=== PATIENT | female | born 1955 | race Caucasian/White ===

== ENCOUNTER 2017-07-16 10:37 | Outpatient (CLI) | payer BC ==
[2017-07-16 18:00] LABS: BASOPHILS % (AUTO) 0.5 %; EOSINOPHILS % (AUTO) 0.7 %; HGB - HEMOGLOBIN 14.1 g/dL (12.0-16.0); LYMPHOCYTES # (AUTO) 1.7 10^3/uL (1.5-3.5); MEAN CORPUSCULAR HEMOGLOBIN 31.3 pg (27.0-31.0); MEAN CORPUSCULAR HGB CONC 32.8 g/dL (32.0-36.0); MEAN CORPUSCULAR VOLUME 95.5 fL (81.0-99.0); MEAN PLATELET VOLUME 7.8 fL (7.9-10.8); MONOCYTES # (AUTO) 0.4 10^3/uL (0.0-1.0); MONOCYTES % (AUTO) 6.1 %; NEUTROPHILS # (AUTO) 4.7 10^3/uL (1.5-6.6); NEUTROPHILS % (AUTO) 67.7 %; PLT - PLATELET COUNT 322 10^3/uL (130-450); RED BLOOD COUNT 4.49 10^6/uL (4.20-5.40); RED CELL DISTRIBUTION WIDTH 13.6 % (12.0-15.0); WHITE BLOOD COUNT 6.9 x10^3/uL (4.8-10.8)
[2017-07-16 18:14] LABS: ALBUMIN 4.9 g/dL (3.2-5.5); ALKALINE PHOSPHATASE 43 IU/L (42-121); ALT ALANINE AMINOTRANSFERASE 23 IU/L (10-60); AST ASPARTATE AMINOTRANSFERASE 22 IU/L (10-42); BILIRUBIN,TOTAL 0.5 mg/dL (0.2-1.0); BUN - BLOOD UREA NITROGEN 11 mg/dL (6-20); CARBON DIOXIDE - CO2 28 mmol/L (21-32); CHLORIDE 103 mmol/L (101-111); CHOL/HDL RATIO 2.2 (<4.4); CHOLESTEROL 172 mg/dL; CREATININE 0.6 mg/dL (0.4-1.0); GFR - MDRD 101 (>89); GLUCOSE 82 mg/dL (70-100); HDL CHOLESTEROL 80 mg/dL; LDL CHOLESTEROL,CALCULATED 79 mg/dL; SODIUM 137 mmol/L (135-145); TOTAL PROTEIN 7.4 g/dL (6.7-8.2); VLDL CHOLESTEROL 13 mg/dL
[2017-07-16 18:16] LABS: T4 (THYROXINE) 5.69 ug/dL (6.09-12.23)
[2017-07-16 18:19] LABS: FREE T3 3.46 pg/mL (2.5-3.9)
[2017-07-16 18:22] LABS: THYROID STIMULATING HORMONE 1.03 uIU/mL (0.34-5.60)
[2017-07-16 18:49] LABS: FOLLICLE STIMULATING HORMONE 38.93 mIU/mL
[2017-07-16 18:50] LABS: LUTEINIZING HORMONE 23.91 mIU/mL
== END 2017-07-16 10:38 | disposition home or self-care (01) ==
LOC: LAB.F 10:37
PROVIDERS: ATTEND Family Medicine
DX: Z13.6 Encounter for screening for cardiovascular disorders (principal); E78.5 Hyperlipidemia, unspecified; Z79.899 Other long term (current) drug therapy
CPT/HCPCS: 36415; 80053; 80061; 82670; 83001; 83002; 83721; 84403; 84436; 84443; 84481; 85025